=== PATIENT | male | born 1955 | race Caucasian/White ===

== ENCOUNTER 2018-05-14 14:15 | Observation (INO) | payer BC, OTHER ==
[2018-05-14] VITALS (8 sets, daily range): BP systolic 139–170; BP diastolic 75–114
[~2018-05-14] VITALS: Ht 182.9 cm; Wt 106.6 kg
--- NOTE | ~2018-05-14 | D ---
[facility] [place] [address] DISCHARGE SUMMARY Name: VIKASH EWING Room #: 210-P [facility] M.R.#: [id number] Admission: 05/14/18 ������������������ Attend Phys: Arya Jansen MD, Discharge: ������������������ Date of : 55 Report #: [id number] THIS REPORT FOR: //name// CC: Arya Jansen Felipemeryl Moreno DO DISCHARGE DIAGNOSES: 1. Unstable angina with stenting of the proximal left anterior descending (2.5 x 18 mm Alexandria medicated stent). 2. Chronic diastolic heart failure. 3. Hypertension. 4. Dyslipidemia. 5. Diabetes. 6. Family history of premature coronary artery disease. HISTORY OF PRESENT ILLNESS: For the complete details of the history of present illness, see dictated history and physical. Briefly, the patient is a 63-year-old gentleman who presented with midsternal chest pain. He has a history of remote cardio scan demonstrating a high coronary calcium score, predominantly in the left anterior descending. An outpatient treadmill exercise study was notable for high lateral ST segment elevation and marked ischemic ST and T-wave changes. He was admitted for further and urgent evaluation. HOSPITAL COURSE: The patient underwent coronary angiography. The details can be found under separate heading and dictation. Left ventricular systolic function was normal. Left main was normal. There was very high-grade proximal LAD disease that was treated with a 2.75 x 18 mm Alexandria medicated stent postdilated to close to 3 mm with a noncompliant balloon. Mild plaquing was evident in the circumflex and in a dominant right coronary. His post-procedural course was uneventful. He was treated with heparin and Integrilin, aspirin and Effient in the periprocedural setting. He was ambulating with excellent groin hemostasis at the time of discharge. DISCHARGE MEDICATIONS: Aspirin 81 mg daily, carvedilol 50 mg twice daily, clonidine 0.2 mg at night, Edarbyclor 40/12.5 one daily, Nexium 40 mg twice daily, metformin 1000 mg twice daily starting this evening, potassium 10 mEq daily, rosuvastatin 20 mg daily, Jardiance 10 mg daily and vitamin D and furosemide to be used for lower extremity edema on a p.r.n. basis. Discharge medicines were reconciled. DISCHARGE ACTIVITY: As instructed post stenting. Arrangements were made for outpatient cardiac rehabilitation. Follow up with Dr. Felipe Moreno. DISCHARGE DIET: Prudent diabetic diet, [place] [id number] DISCHARGE SUMMARY Name: VIKASH EWING Room #: 210-P [facility] M.R.#: [id number] Admission: 05/14/18 ������������������ Attend Phys: Arya Jansen MD, Discharge: ������������������ Date of : 55 Report #: [id number] DISCHARGE CONDITION: Stable and improved. ��������������������������������������������� ���������������������������������������� By: ��������������������������������������������� 0804 0941 Arya Jansen MD, FACC /nt
[~2018-05-14 14:15] MED LIST: ASPIRIN EC81 M1 PO; BENICAR40 MG PO; CIPROFLOXACIN500 M1 PO; CLONIDINE HCL0.2 M2 PO; COREG CR20 MG PO; FLAGYL 250 MG250 MG PO; FUROSEMIDE 40 M40 M1 PO; KLOR-CON 1010 MEQ PO; MINOXIDIL2.5 MG PO; NEXIUM40 MG PO; NORCO 5-325 TA1 EACH PO
[2018-05-14 14:52] LABS: HEMOGLOBIN 15.3 gm/dL (14.0-18.0); MCH 29.8 pg (26.0-34.0); MCHC 34.8 g/dL (28.0-37.0); MCV 85.8 fL (80.0-100.0); RBC 5.13 mil/uL (4.50-6.00); WBC 8.8 thou/uL (4.0-11.0)
[2018-05-14 15:05] LABS: CALCIUM 9.3 mg/dL (8.5-10.1); CREATININE 1.1 mg/dL (0.7-1.3); POTASSIUM 3.2 mmol/L (3.5-5.1)
--- NOTE | 2018-05-14 16:22 | EKG ---
[place] [address] [address] [facility] [place] [address] ELECTROCARDIOGRAM REPORT Name: VIKASH EWING Room #: REG CLI [facility]#: [id number] ������������������ Admission: 05/14/18 ������������������ Attend Phys: Arya Jansen MD, Discharge: ������������������ Date of : 55 Report #: [id number] ����������������������������������������������������������������� [id number] THIS REPORT FOR: //name// [facility] Test Date: 2018-05-14 Test Time: 15:13:53 Pat Name: VIKASH EWING Department: Room: Gender: M Wet Trimmer: Jose LAND : 1955 Requested By: Arya Jansen Order Number: [id number] MD: Arya Jansen Measurements Intervals [place] Rate: 72 P: 7 WA: 179 QRS: -30 QRSD: 107 T: 8 QT: 420 QTc: 460 Interpretive Statements Sinus rhythm Left axis deviation Compared to ECG 12/07/2004 23:51:29 Left-axis deviation now present Electronically Signed On 05-14-2018 16:22:19 CHAIRLIFT OPERATOR by Arya Jansen [email or web address] ��������������������������������������������� <ELECTRONICALLY SIGNED> ���������������������������������������� By: Arya Jansen MD, [facility] ��������������������������������������������� 05/14/18 1622 1513 151 Arya Jansen MD, [facility] /EPI
[2018-05-14] MEDS ORDERED: COREG25 MG PO (22:43)
[2018-05-14] MEDS ORDERED: EDARBYCLOR 40-1 EACH PO (22:49)
[2018-05-14] MEDS ORDERED: CRESTOR20 MG PO (22:49)
[2018-05-14] MEDS ORDERED: VITAMIN D5000 UNI1 PO (22:51)
[2018-05-14] MEDS ORDERED: JANUVIA100 MG PO (22:51)
[2018-05-14] MEDS ORDERED: METFORMIN HCL500 MG PO (22:52)
[2018-05-14] MEDS ORDERED: CATAPRES0.2 M1 PO (22:53)
[2018-05-15] VITALS (7 sets, daily range): BP systolic 150–162; BP diastolic 78–93
[2018-05-15 05:02] LABS: HEMATOCRIT 37.8 % (42.0-52.0); HEMOGLOBIN 13.6 gm/dL (14.0-18.0); MCH 30.6 pg (26.0-34.0); MCHC 35.9 g/dL (28.0-37.0); MCV 85.1 fL (80.0-100.0); RBC 4.45 mil/uL (4.50-6.00); RDW 13.7 % (10.5-14.5)
[2018-05-15 05:17] LABS: ALBUMIN 3.7 g/dL (3.4-5.0); ANION GAP 10 mmol/L (7-16); BUN 11 mg/dL (7-18); CALCIUM 8.3 mg/dL (8.5-10.1); CHLORIDE 99 mmol/L (98-107); CHOLESTEROL 76 mg/dL (<200); CO2 28 mmol/L (21-32); CREATININE 1.2 mg/dL (0.7-1.3); GLUCOSE 168 mg/dL (74-106); HDL CHOLESTEROL 24 mg/dL (>40); LDL CHOLESTEROL 24 mg/dL (<100); POTASSIUM 3.1 mmol/L (3.5-5.1); SGOT 16 U/L (15-37); SGPT 28 U/L (30-65); SODIUM 137 mmol/L (136-145); TC:HDL 3.2 Ratio (Not establshd); TOTAL BILIRUBIN 0.6 mg/dL (<0.1-1.0); TOTAL PROTEIN 6.4 g/dL (6.4-8.2); TRIGLYCERIDE 144 mg/dL (<150); TROPONIN-I 0.18 ng/mL (<0.06); VLDL 29 mg/dL (<40)
[2018-05-15 05:19] LABS: SERUM ASSESSMENT Clear
--- NOTE | 2018-05-15 05:31 | NUR ---
PT. ARRIVE AROUND 1920 AT FLOOR FROM INDUSTRIAL NURSE; A0X4; R. GROIN INTACT; CLEAN; DRY; NO HEMATOMA; R. PEDALIS PULSES 2; BED REST FOR 3H; EDUCATED ABOUT KEEPING INMOBILE R. LEG; ST. UNDERSTANDING; NO C/O PAIN; THROUGH THE NIGHT NO HEMATOMA; DRESSING DRY; INTACT; PULSES 2/2; AROUND 2230 C/O PAIN; PRN PAIN MEDICATION GIVEN; ABLE TO REST DURING THE NIGHT; ASSESSMENT AND VS CHARGED; FOLLOWING POC; WILL PASS ON REPORT.
[2018-05-15 07:23] LABS: MAGNESIUM 1.7 mg/dL (1.8-2.4)
[2018-05-15] MEDS ORDERED: EFFIENT10 MG PO (07:57)
[2018-05-15] MEDS ORDERED: JARDIANCE10 MG PO (08:11)
[2018-05-15] MEDS ORDERED: SLOW FE 160MG160 MG PO (08:18)
--- NOTE | 2018-05-15 09:08 | EKG ---
[place] [address] [facility] [place] [address] ELECTROCARDIOGRAM REPORT Name: VIKASH EWING Room #: 210-P [facility] M.R.#: [id number] ������������������ Admission: 05/14/18 ������������������ Attend Phys: Arya Jansen MD, Discharge: ������������������ Date of : 55 Report #: [id number] ����������������������������������������������������������������� [id number] THIS REPORT FOR: //name// [facility] Test Date: 2018-05-14 Test Time: 20:16:41 Pat Name: VIKASH EWING Department: Room: 210 Gender: M Professor Of Practice: Jose LAND : 1955 Requested By: Arya Jansen Order Number: [id number] MD: Arya Jansen Measurements Intervals [place] Rate: 65 P: -19 ND: 179 QRS: -33 QRSD: 104 T: -5 QT: 449 QTc: 467 Interpretive Statements Sinus rhythm Left axis deviation Nonspecific ST and T wave abnormality Poor R wave progression Compared to ECG 05/14/2018 15:13:53 T-wave abnormality now present Electronically Signed On 05-15-2018 9:08:09 CLINICIAN ONCOLOGY by Arya Jansen [email or web address] ��������������������������������������������� <ELECTRONICALLY SIGNED> ���������������������������������������� By: Arya Jansen MD, [facility] ��������������������������������������������� 05/15/18 0908 15 15 Arya Jansen MD, [facility] /EPI
--- NOTE | 2018-05-15 09:12 | EKG ---
[address] [place] [address] ELECTROCARDIOGRAM REPORT Name: VIKASH EWING Room #: 210-[facility] M.R.#: [id number] ������������������ Admission: 05/14/18 ������������������ Attend Phys: Arya Jansen MD, Discharge: ������������������ Date of : 55 Report #: [id number] ����������������������������������������������������������������� [id number] THIS REPORT FOR: //name// [facility] Test Date: 2018-05-15 Test Time: 07:11:17 Pat Name: VIKASH EWING Department: Room: 210 P Gender: M Corporate Coordinator: FELY : 1955 Requested By: Arya Jansen Order Number: [id number] MD: Arya Jansen Measurements Intervals [place] Rate: 64 P: -13 OR: 171 QRS: -28 QRSD: 106 T: 7 QT: 454 QTc: 469 Interpretive Statements Sinus rhythm Borderline left axis deviation Compared to ECG 05/14/2018 15:13:53 ST and T wave abnormality is no longer present Electronically Signed On 05-15-2018 9:12:17 TUBE BUILDING MACHINE OPERATOR by Arya Jansen [email or web address] ��������������������������������������������� <ELECTRONICALLY SIGNED> ���������������������������������������� By: Arya Jansen MD, [facility] ��������������������������������������������� 03911 0 0 Arya Jansen MD, [facility] /EPI
--- NOTE | 2018-05-15 12:50 | NUR ---
ASSESSMENT DOCUMENTED. PT ALERT AND ORIENTED. VSS. RIGHT GROIN INCISION C/D/I. NO HEMATOMA NOTED. SEEN BY DR. ROMO. ORDERS GIVEN TO DISCHARGE PT TO HOME. DISCHARGE INSTRUCTIONS GIVEN TO PT AND . PT VERBERLIZE UNDERSTANDING. PT LEFT THE FACILITY ACCOMPANIED BY THE .
--- NOTE | 2018-05-15 13:38 | CATHLAB ---
[facility] [address] [place] [address] INVASIVE PROCEDURE REPORT Name: VIKASH EWING Room #: 210-P [facility] [place] ..#: [id number] ������������� Admission: 05/14/18 ������������� Attend Phys: Arya Jansen, Discharge: ��� 05/15/18 ������������� ��� Date of : 55 Date of Service: 05/15/18 1337 �� Report #: [id number] �������� ��������������������������������������������[id number] THIS REPORT FOR: //name// ADDENDUM APPROVED REPORT Study performed: 05/14/2018 17:15:19 Patient Details Patient Status: Out-Patient Room #: The patient is a 63 year-old male Event Personnel Arya Jansen Seam Rubbing Machine Operator, Juanito Long RN, Glenny Vu Monitor, Priscilla Crow, Bernarda Recio RT(R)() Colin Procedures Performed Art Access - R femoral artery* 79458 Initial Mod Sed Same Phys/QHP Gr5y 561921 55360 Mod Sed Same Phys/QHP Ea 786980 Left Heart Cath w/or w/o Coronaries [id number] [facility] JUAN [facility]ERT[facility] Place w/wo Plasty Single LAD 794677 Hemostasis w/ Mynx Indication Chest pain Risk Factors Arterial HypertensionDysplipidemia , Family History, Hypercholesterolemia, Diabetes Procedure Narrative The patient was brought electively to the Cardiac Catheterization Laboratory and was prepped and draped in a sterile manner. The Right Groin^ was infiltrated with subcutaneous anesthesia. A PINNACLE 6FR Sheath #[id number] sheath was inserted into the RFA^. Coronary angiography was performed using coronary diagnostic catheters. The right coronary system was accessed and visualized with a JR 4 catheter. The left coronary system was accessed and visualized with a JL 4 catheter. The left ventricle was accessed and visualized with a Pigtail catheter. Left ventricular/Aortic Valve gradient assessed via catheter pullback. Left ventriculogram was performed in WALSH projection. Closure device was deployed with a 6 Fr Mynx. The patient tolerated the procedure well and there were no complications associated with the procedure. There was no hematoma. Intraoperative Conscious Sedation [facility] [address] [place] [address] INVASIVE PROCEDURE REPORT Name: VIKASH EWING Room #: 210-P [facility]..#: [id number] ������������� Admission: 05/14/18 ������������� Attend Phys: Arya Jansen, Discharge: ��� 05/15/18 ������������� ��� Date of : 55 Date of Service: 05/15/18 1337 �� Report #: [id number] �������� ��������������������������������������������[id number] Sedation start time: 17:15 Case end Time: 18:30 Fluoro Time: 20.33 minutes Dose: DAP 93666.00 cGycm2 3057 mGy Contrast Type and Amount: Omnipaque 380 ml Coronary Angiography The patient's coronary anatomy is right dominant. Diagnostic Cath Left Main Normal left main LAD Critical 99% proximal LAD stenosis prior to first diagonal branch. Right to left collateralization to subtotally occluded mid LAD beyond first diagonal branch Circumflex Large nondominant circumflex comprised of two marginal branches Angiographically normal circumflex OM1 Large first marginal branch, mild 10-20% mid vessel plaquing Right Coronary The right coronary was dominant with mild 20-30% proximal and mid vessel plaquing Right to left collateralization to mid LAD R PDA Large posterior descending branch, mild plaquing RPLV Large posterior lateral branch, angiographically normal Left Ventriculography The left ventricle is normal in size with normal contractility. The left ventricular ejection fraction is estimated to be 55-60%. Left ventricular wall motion abnormalities are not present. There is no mitral insufficiency. Hemodynamics The aortic pressure is 172/83 mmHg with a mean of 118 mmHg. The left ventricular pressure is 179/-1 mmHg with a mean of mmHg. The left ventricular end diastolic pressure is 28 mmHg. PCI Technique Lesion Anticoagulation was achieved with Heparin, Integrilin. Patient was preloaded with Effient. Percutaneous coronary intervention was performed on the proximal left anterior descending artery segment. The lesion stenosis prior to intervention was 99% with ROYAL 3 flow. A EBU 4.0 Guide Catheter was used to engage the ostium. A Luge Interventional Guidewire was used to cross the lesion. [facility] [address] [place] [address] INVASIVE PROCEDURE REPORT Name: VIKASH EWING FERNY Room #: 210-P [facility] [place] M.R.#: [id number] ������������� Admission: 05/14/18 ������������� Attend Phys: Arya Jansen, Discharge: ��� 05/15/18 ������������� ��� Date of : 55 Date of Service: 05/15/18 1337 �� Report #: [id number] �������� ��������������������������������������������[id number] BALLOON DILATION A Balloon catheter Euphora 2.5 x 12 was inserted and inflated up to 8.00atm for 23seconds. Repeat angiography revealed the following post-dilatation results: moderately severe residual stenosis. Additional Inflation: 12.00atm for 38seconds. Additional Inflation: 12.00atm for 32seconds. STENT DEPLOYMENT A drug-eluting stent Xience Alexandria 2.75 x 18 was inserted and inflated up to 16.00atm for 35seconds. Repeat angiography revealed the following post-stent deployment results: 0% residual stenosis with ROYAL-3 flow maintained. POST STENT DEPLOYMENT BALLOON DILATION A Balloon catheter NC Trek 2.75 x 15 was inserted and inflated up to 22.00atm for 35seconds. Repeat angiography revealed the following post-dilatation results: 0% residual stenosis with ROYAL-3 flow. Additional Inflation: 22.00atm for 15seconds. Final angiography reveals 0 % stenosis with ROYAL 3 flow. Conclusion 1. Normal global and regional left ventricular systolic function. Ejection fraction 55-60% 2. Normal left main 3. Critical proximal LAD stenosis. Successfully stented with a 2.75 x 18 mm [place] medicated stent post dilated to 2.9mm Occlusion of LAD beyond diagonal branch filled by right to left collateralization 4. Mild plaquing in a nondominant but large circumflex 5. Dominant right coronary with mild proximal and mid vessel plaquing (20-30%) Recommendations Cardiac Rehabilitation Referral Aggressive Medical Therapy Medications Administered ARB (any) Aspirin (any) Statin (any) [facility] [address] [place] [address] INVASIVE PROCEDURE REPORT Name: VIKASH EWING Room #: 210-P [facility] M.R.#: [id number] ������������� Admission: 05/14/18 ������������� Attend Phys: Arya Jansen, Discharge: ��� 05/15/18 ������������� ��� Date of : 55 Date of Service: 05/15/18 1337 �� Report #: [id number] �������� ��������������������������������������������[id number] Prasugr Cardiac Rehabilitation Referral ��������������������������������������������� <ELECTRONICALLY SIGNED> ���������������������������������������� By: Arya Jansen MD, [facility] ��������������������������������������������� 05/15/18 1337 1337 133 Arya Jansen MD, [facility] /INF
[2018-05-15 23:06] LABS: GLYCOHEMOGLOBIN (HGB A1C) 5.6 % (4.8-5.6)
== END 2018-05-15 13:16 | disposition home or self-care (01) ==
LOC: CATH 14:15 → 2N 19:57 → ENTRNSPT 05-15 11:59 → EDTRNSPTSTS 05-15 12:02 → 2N 05-15 13:16
PROVIDERS: ADMIT Internal Medicine
DX: I25.110 Atherosclerotic heart disease of native coronary artery with unstable angina pectoris (principal); I11.0 Hypertensive heart disease with heart failure; I50.32 Chronic diastolic (congestive) heart failure; E11.9 Type 2 diabetes mellitus without complications; E78.5 Hyperlipidemia, unspecified; Z79.82 Long term (current) use of aspirin; Z79.84 Long term (current) use of oral hypoglycemic drugs; Z79.899 Other long term (current) drug therapy; Z82.49 Family history of ischemic heart disease and other diseases of the circulatory system

== ENCOUNTER → 2020-01-27 | Outpatient (CLI) | payer BC, OTHER ==
[~2020-01-27] MED LIST changes: +CATAPRES0.2 M1 PO; +COREG25 MG PO; +CRESTOR20 MG PO; +EDARBYCLOR 40-1 EACH PO; +EFFIENT10 MG PO; +JANUVIA100 MG PO; +JARDIANCE10 MG PO; +METFORMIN HCL500 MG PO; +SLOW FE 160MG160 MG PO; +VITAMIN D5000 UNI1 PO
== END ==
LOC: LAB 11:06
PROVIDERS: ATTEND Emergency Medicine
DX: Z20.828 Contact with and (suspected) exposure to other viral communicable diseases (principal)

== ENCOUNTER → 2020-03-24 | Outpatient (CLI) | payer OTHER | LOC: SJCVCIMAG 11:21 | PROVIDERS: ATTEND Internal Medicine | DX: I34.0 Nonrheumatic mitral (valve) insufficiency (principal); I11.9 Hypertensive heart disease without heart failure; I25.10 Atherosclerotic heart disease of native coronary artery without angina pectoris; E78.5 Hyperlipidemia, unspecified; E11.9 Type 2 diabetes mellitus without complications; U07.1 COVID-19; E66.9 Obesity, unspecified; Z98.890 Other specified postprocedural states; Z79.82 Long term (current) use of aspirin; Z79.84 Long term (current) use of oral hypoglycemic drugs; Z79.899 Other long term (current) drug therapy; Z82.49 Family history of ischemic heart disease and other diseases of the circulatory system ==